=== PATIENT | male | born 1985 | race Caucasian/White ===

== ENCOUNTER → 2016-11-19 | Outpatient (CLI) | payer BC ==
--- NOTE | ~2016-11-19 | CT4 ---
[facility] A Service of [facility] RADIOLOGY TEXT RESULTS PATIENT: AD SMITH LOCATION: [facility] : [birth year] UNIT #: [id number] AGE: [address]: TONYA SIMON APRN SEX: M ORDER DR: [id number] [facility] [address] [place], [place] [address] [id number] O MR#: [id number] Acc #: [id number] NAME: AD SMITH : 1985 SEX: M STUDY DATE/TIME: 11/19/2016 8:08 UNIT: [facility] ROOM: STUDY DESCRIPTION: CT Abd and Pelv Wo Cont Attending Physician: Tonya Simon Np Referring Physician: Tonya Simon Np Ordering Physician: Tonya Simon Np Primary Care Physician: Caroline Huntley M.D. MEDICAL IMAGING REPORT This report is preliminary unless electronic signature is present EXAM CT abdomen and pelvis without contrast INDICATION Left-sided abdominal and flank pain on and off for the past 2 weeks. Intermittent hematuria over the past [address] of the abdomen and pelvis. TECHNIQUE This CT exam was performed with one or more of the following radiation dose reduction techniques: automatic exposure control, adjustment of mA and/or kV according to patient size, and iterative reconstruction. COMPARISON None FINDINGS ABDOMEN WITHOUT CONTRAST: The included lung bases are clear. Diffuse hepatic steatosis. The uppermost portions of the liver are excluded from the study. The adrenal glands, pancreas, gallbladder have an unremarkable unenhanced appearance. Bowel loops are nondilated. Appendix normal. 8.0 mm calculus in the right renal pelvis. No hydronephrosis. 6.0 mm nonobstructing calculus lower pole left kidney. There is no radiodense ureteral calculus or hydronephrosis. PELVIS WITHOUT CONTRAST: No pelvic mass or fluid. No aggressive appearing bone lesion. [facility] A Service [facility] RADIOLOGY TEXT RESULTS PATIENT: AD SMITH LOCATION: [facility] : 83 UNIT #: [id number] AGE: [address]: TONYA SIMON APRN SEX: M ORDER DR: IMPRESSION 1. No acute findings on this study. 2. 8.0 mm calculus in the right renal pelvis, with no hydronephrosis. It is conceivable that this could cause intermittent obstruction. There is also a 6.0 mm nonobstructing calculus in the lower pole of the left kidney. 3. Hepatic steatosis. Dictated by... Carl Sharp M.D. THIS IS AN ELECTRONICALLY VERIFIED REPORT Carl Sharp M.D. at 11/23/2016 7:14 AM Whit TD: 11/19/2016 09:38 JOB #: [id number] MEDICAL IMAGING REPORT Page 1 of 1 COPY
== END | disposition home or self-care (01) ==
LOC: CCAT 07:40
DX: R31.9 Hematuria, unspecified (principal); R10.9 Unspecified abdominal pain; R80.9 Proteinuria, unspecified; N20.0 Calculus of kidney; K76.0 Fatty (change of) liver, not elsewhere classified
CPT/HCPCS: 74176

== ENCOUNTER → 2017-01-17 | Outpatient (CLI) | payer BC ==
--- NOTE | ~2017-01-17 | CR7 ---
[facility] A Service of [facility] RADIOLOGY TEXT RESULTS PATIENT: AD SMITH LOCATION: [facility] : 83 UNIT #: [id number] AGE: [address]: ROCCO SWENSON MD SEX: M ORDER DR: [id number] [place], [place] [address] [id number] O MR#: [id number] Acc #: [id number] NAME: AD SMITH : 1985 SEX: M STUDY DATE/TIME: 01/17/2017 13:24 UNIT: [facility] ROOM: STUDY DESCRIPTION: CR Abdomen Single AP View Attending Physician: Rocco Swenson M.D. Referring Physician: Rocco Swenson M.D. Primary Care Physician: Caroline Huntley M.D. MEDICAL IMAGING REPORT This report is preliminary unless electronic signature is present EXAM Abdominal radiograph INDICATIONS Right-sided renal calculi. Followup after lithotripsy. PROCEDURE Two supine views of the abdomen and pelvis COMPARISON CT from 11/19/2016 FINDINGS Previously demonstrated calculus on the right is not seen. There is a 7-8 mm calculus along the course of the mid left ureter just lateral to the L4 transverse process. This was previously in the lower pole of the left kidney. No radiodense bladder calculus. IMPRESSION 1. A 7-8 mm calculus mid-left ureter just lateral to the transverse process of normal failure. This has previously in the lower pole left kidney. 2. The previously demonstrated right renal calculus is not seen. Dictated by... Carl Sharp M.D. THIS IS AN ELECTRONICALLY VERIFIED REPORT Carl Sharp M.D. at 01/19/2017 7:11 AM NAVEEN/lavon [facility] A Service [facility] RADIOLOGY TEXT RESULTS PATIENT: AD SMITH LOCATION: [facility] : 83 UNIT #: [id number] AGE: [address]: ROCCO SWENSON MD SEX: M ORDER DR: TD: 01/18/2017 14:23 JOB #: [id number] MEDICAL IMAGING REPORT Page 1 of 1 COPY
== END | disposition home or self-care (01) ==
LOC: CRAD 12:52
DX: N20.1 Calculus of ureter (principal)
CPT/HCPCS: 74000